=== PATIENT | female | born 1980 | race Hispanic/Latino ===

== ENCOUNTER 2017-09-09 08:21 | Emergency (ER) | payer SELFPAY ==
[~2017-09-09] VITALS: Ht 162.6 cm; Wt 59.0 kg
[~2017-09-09 08:21] MED LIST: ISENTRESS400 M1 PO; OLANZAPINE5 M2 PO; PERCOCET 5-3251 EACH PO; TIVICAY50 M1 PO; TRUVADA 200 MG1 EACH PO; ZOFRAN4 M2 PO; ZYPREXA5 M1 PO
[2017-09-09 08:26] VITALS: BP 121/82
--- NOTE | 2017-09-09 12:04 | ED GI/GU/ABDOMINAL COMPLAINT ---
History of Present Illness General Chief Complaint: Female Urogenital Problems Stated Complaint: VAGINAL DISCHARGE Source: patient, old records Exam Limitations: no limitations Vital Signs & Intake/Output Vital Signs & Intake/Output Vital Signs Date Time Temp Pulse Resp B/P B/P Pulse O2 O2 Flow FiO2 Mean Ox Delivery Rate 09/09 1314 98 Room Air ED Intake and Output 09/10 0000 09/09 1200 Intake Total 0 Output Total Balance 0 Intake, IV 0 Patient 130 lb Weight Weight Reported by Patient Measurement Method Allergies Coded Allergies: No Known Allergies (04/06/16) Reconcile Medications No Known Home Medications Triage Note: 37 YO FEMALE TO TRIAGE C/O VAGINAL ITCHINESS/BURNING. STATES FREQUENT URINATION. STATES WHITE DISCHARGE X2.5 DAYS. Triage Nurses Notes Reviewed? yes ? N Is pt currently ? No Onset: Abrupt Duration: day(s): (2), constant Timing: recent history Quality/Severity: burning Location: vaginal Radiation: no radiation Activities at Onset: none Prior Abdominal Problems: none Sexually Active: Yes Last Time You Were Sexual: less than 2 months ago Sexual Orientation: Heterosexual Use of Protection: No No Modifying Factors: none Associated Symptoms: DENIES HPI: 37-year-old female presents emergency room for evaluation complaining of vaginal itching and burning and yellow discharge for the past 2 days. She is sexually active. No new partners she does not use protection. She denies history of STD in the past. No dysuria urgency frequency hematuria no vaginal bleeding. No doll pain fever chills. She does not have a behavioral health consultant. No modifying factors or associated symptoms otherwise. (Nam Boucher) Past History Travel History Traveled to [place] past 21 day No Medical History Any Pertinent Medical History? 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 No (Nam Boucher) Review of Systems Review of Systems Constitutional: Reports: no symptoms, see HPI. Comments Review of systems: See HPI, All other systems negative. Constitutional, no chills no fever, HEENT: no sore throat no congestion Cardiovascular: No chest pain Skin: no rashes, no change in skin Respiratory: No dyspnea no cough no sputum GI: No nausea no vomiting, no diarrhea, no bloating/constipation : dysuria No hematuria, frequency Muscle skeletal: No joint pain, no back pain Neurologic: , no headache Heme/endocrine: No bruising (Nam Boucher) Physical Exam Physical Exam General Appearance: well developed/nourished, alert, awake Gastrointestinal: soft Comments: Well-developed well-nourished person in no acute distress HEENT: Normal EENT exam; PERRL, EOMI, HEAD is atraumatic. moist mucous membranes. Neck: Supple, normal range of motion without pain or tenderness Back: Nontender, no CVA tenderness. Full range of motion Cardiovascular: Regular rate and rhythms no murmurs Respiratory: No respiratory distress. Patient speaking in full complete sentences. Breath sounds clear to auscultation bilaterally: NO W/R/R Abdomen: Soft, nontender nondistended, no appreciable organomegaly. Normal bowel sounds. No rebound/guarding, pelvic: deferred Extremity: No edema, full range of motion of extremities Neuro: Alert oriented x3, motor sensory normal, There were no obvious focal neurologic abnormalities. Skin: No appreciable rash on exposed skin, skin is warm and dry. Psych: Mood and affect is normal, memory and judgment is normal. Core Measures ACS in differential dx? No Sepsis Present: No Sepsis Focused Exam Completed? No (Nam Boucher) Progress Differential Diagnosis: intrauterine , ovarian cyst, PID/cervicitis, threatened AB, UTI/pyelo Plan of Care: Orders Procedure Date/time Status Add-on Test (ER Only) 09/09 1053 Active Add-on Test (ER Only) 09/09 0923 Active CULTURE,URINE 09/09 0832 Active CHLAMYDIA-GC DNA PROBE 09/09 08 Active URINE 09/09 0826 Complete URINALYSIS 09/09 0826 Complete Laboratory Tests 09/09/17 0832: Urinalysis LIGHT H, Urine Color YEL, Urine Clarity HAZY H, Urine pH 6.0, Ur Specific [place] >= 1.030, Urine Protein 30 H, Urine Ketones NEG, Urine Nitrite NEG, Urine Bilirubin NEG, Urine Urobilinogen 0.2, Ur Leukocyte Esterase MOD H, Ur Microscopic SEDIMENT EXAMINED, Urine RBC 3-5, Urine WBC > 75 H, Ur Epithelial Cells MANY H, Urine Bacteria MANY H, Micro UA Comment TRICHOMONAS SEEN H, Urine Hemoglobin SMALL H, Urine Glucose NEG, Urine Test NEGATIVE Microbiology 09/09 831 URINE ROUT: Urine Culture - RECD 09/09 825 URINE ROUT: GC DNA Probe - RECD 09/09 825 URINE ROUT: Chlamydia DNA Probe (KEVIN) - RECD I discussed with the patient all of her lab results she was treated with Flagyl 2 g by mouth as a thorough 1 g by mouth Rocephin 250 IM I discussed with her need for close follow-up with her [facility] return precautions were discussed at length cleared for discharge Initial ED EKG: none (Yanique BALDERAS,Nam) Departure Departure Time of Disposition: 1212 Disposition: HOME OR SELF CARE Condition: Stable Clinical Impression Primary Impression: Trichimoniasis Referrals: Reyes BALDERAS,Macy Ibrahim (PCP/Family) Nelson RAMIREZ,Amina Jhaveri Additional Instructions: Follow up with [facility] dr corrales. you have been treated for a trichimonis infection. You should inform your partners so they cane be treated for the same. return with any concerns Departure Forms: Customer Survey General Discharge Information Prescriptions: Current Visit Scripts No Known Home Medications (Nam Boucher) PA/WIRE HARNESS DESIGN ENGINEER Co-Sign Statement Statement: ED Attending supervision documentation- [] I saw and evaluated the patient. I have also reviewed all the pertinent lab results and diagnostic results. I agree with the findings and the plan of care as documented in the PA's/WIRE HARNESS DESIGN ENGINEER's documentation. [X] I have reviewed the ED Record and agree with the PA's/WIRE HARNESS DESIGN ENGINEER's documentation. [] Additions or exceptions (if any) to the PAs/WIRE HARNESS DESIGN ENGINEER's note and plan are summarized below: [] (Peyton RAMIREZ,Emily)
== END 2017-09-09 13:23 ==
LOC: ERH 08:21
DX: A59.9 Trichomoniasis, unspecified (principal)
CPT/HCPCS: 81001; 81025; 87086; 87147; 87491; 87591; 96372; J0696

== ENCOUNTER 2017-09-16 14:55 | Inpatient (IN) | payer OTHER ==
[~2017-09-16] VITALS: Ht 154.9 cm; Wt 68.6 kg
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
[2017-09-16 16:08] LABS: ABSOLUTE BASOPHIL COUNT 0.1 /CUMM (0.0-0.2); ABSOLUTE EOSINOPHIL COUNT 0.3 /CUMM (0.0-0.7); ABSOLUTE GRANULOCYTE CT 6.2 /CUMM (1.4-6.5); ABSOLUTE MONOCYTE COUNT 0.5 /CUMM (0.10-0.60); BASOPHIL % 0.6 % (0.0-2.0); GRANULOCYTE % 62.2 % (42.2-75.2); HEMATOCRIT 41.9 % (37-47); MEAN CORPUSCULAR HGB 27.6 PG (27.0-31.0); MEAN CORPUSCULAR HGB CONC 32.9 G/DL (33.0-37.0); MEAN CORPUSCULAR VOLUME 83.9 FL (81.0-99.0); MEAN PLATELET VOLUME 8.1 FL (7.4-10.4); PLATELET COUNT 361 /CUMM (130-400); RBC DISTRIBUTION WIDTH 13.2 % (11.5-14.5); RED BLOOD CELL CT 4.99 /CUMM (4.20-5.40)
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
--- NOTE | 2017-09-16 19:50 | ED PSY CRISIS COLLATERAL NOTE ---
Collateral Note Collateral Note Family/Inform/[place] Contacts: Attemped to reach patient's boyfriend, Elliot Bravo [phone]. Phone did not ring and did not go to voicemail. Long beeping sound. pt did not know number of top her head.
[2017-09-16 20:37] VITALS: BP 123/77
[2017-09-16] MEDS ORDERED: OLANZAPINE5 M2 PO (21:34)
[2017-09-16] MEDS ORDERED: ABILIFY15 M1 PO (22:01)
[2017-09-17 07:54] VITALS: BP 123/79
--- NOTE | 2017-09-17 08:51 | CPS PROVIDER INIT ASMT PSYCH ---
Psychiatric Admission Journeyman Wireman's Note Reviewed: Yes Patient Seen and Examined: Yes Identifying Information: A 37-year old (of Samoan origins) with prior diagnoses of intellectual disability and ?? schizophrenia or ?? Bipolar presenting to the ED with anxiety and depression. Earlier in the day she expressed to Iraida from [facility] that she was thinking of hurting her son. Chief Complaint: "I have depression and anxiety" Reaction to Hospitalization: did not seem to be bothered by it History of Present Illness Onset of Illness: Pre-existing diagnoses of mild intellectual disability and ?? schizophrenia or ? ? Bipolar, reportedly out of meds for about 3 weeks, she has missed several appointments with Ivory Espinoza APRN Circumstances Leading to Admission: command hallucinations to hurt her son Problem(s) Justifying Need for Admission: command hallucinations to hurt son Past Psychiatric History Past Diagnosis(es)- if any: ?? Bipolar ?? Schizophrenia Mild Intellctual Impairment Past Precipitating Factors- if any: Non-adherence to medications - Include inpatient and outpatient treatment Treatment History: The patient was previously at Inpatient Psychiatry June 2016. She has been with [facility] since her discharge History of Suicide Attempts or Gestures no attempts, wanted to cut self in the past (but did not) Substance Abuse History: [id number] Allergies: Coded Allergies: No Known Allergies (04/06/16) Home Med List: Has not been on any x 3 weeks - Include any medical condition(s) that may - impact the patient's recovery/remission Past History Medical History Neurological: migraine EENT: NONE Cardiovascular: NONE Respiratory: NONE Gastrointestinal: NONE Hepatic: NONE Renal: NONE Musculoskeletal: NONE Psychiatric: anxiety, depression Endocrine: diabetes Blood Disorders: NONE Cancer(s): NONE WALL TAPER HELPER/Reproductive: NONE History of MRSA: No History of VRE: No History of CDIFF: No Isolation History: Standard Surgical History Surgical History: hysterectomy Psychiatric Family/Social Hx Family History Psychiatric Illness: She denied, but she is an unreliable historian because Mild Intellectual Disability Substance Use: She denied, but she is an unreliable historian because Mild Intellectual Disability Suicides: She denied, but she is an unreliable historian because Mild Intellectual Disability Social History Living Situation: She lives with her 3 children but I am not clear whether the patient actually lives with her parents are not Significant Relationships (family/friends): The patient's ex- /the father of her children Education: The patient was in special education because of mild intellectual disability, looks like she may have reached 10 grade education Vocation/Occupation: Unemployed Legal: No legal entanglements Healthly Behaviors Screening Tobacco Screening Tobacco Use from ED Docu: Never used - If tobacco counseling indicated - the following topics are required. - #1 Recognizing dangerous situations. - #2 Coping Skills. - #3 Basic information about quitting. Status of Tobacco Cessation Counseling: Not Applicable Cessation Med Status Not Applicable Alcohol Screening - ETOH screen POS if BAL >=80 or Audit-C>= M4/F3 Audit-C Score from Diag Assess: 2 Blood Alcohol Level: Laboratory Tests 09/16 1540 Toxicology Serum Alcohol (<10 MG/DL) < 10.0 Alcohol Use Screening Results: Neg per Audit C &/or BAL - If ETOH counseling indicated - the following topics are required. - #1 Express concern about the patient's - drinking at unhealthy levels, include informing - of national norms for moderate drinking: - men <= 14 drinks/week, max 4 drinks/occasion - women <= 7 drinks/week, max 3 drinks/occasion - #2 Providing feedback, including linking alcohol to - negative physical effects (liver injury, hypertension) - negative emotional effects (relationship problems and - depression) - negative occupational consequences (reduced work - performance) - #3 Advising the patient to abstain from alcohol or - to drink below national norms for moderate drinking - (as listed above). Status of ETOH Use Counseling: N/A B/C NO ETOH Use Metabolic Screening - Screen if on a Neuroleptic Medication - Metabolic screening should include: - Blood Pressure, BMI, Glucose or Hgb A1c, & a - Lipid profile from within the past 365 days. Metabolic Screening Patient on a neuroleptic(s) . Enter below results for Hemoglobin A1C, and lipid panel if obtained during the last 365 days. BMI: 28.500 Blood Pressure: 123/79 Laboratory Results From [facility] (If applicable): Lab Cholesterol 248 MG/DL H 03/11/17 1054 Cholesterol/HDL Ratio 7 % H 03/11/17 1054 HDL Cholesterol 35 mg/dL L 03/11/17 1054 Hemoglobin A1c 7.3 % H 03/11/17 1054 LDL Cholesterol, Calc 179 mg/dL H 03/11/17 1054 Triglycerides 174 mg/dL H 03/11/17 1054 Exam and Plan Mental Status Examination Ambulation Status: Patient had steady gait Appearance: Unremarkable appearance Attitude towards examiner: Calm and cooperative Psychomotor activity: There is reduced psychomotor activity Behavior: No abnormal behaviors Quality of speech: Reduced speech Affect: Constricted affect Mood: Depressed and anxious Suicidal Ideation: Denied suicidal ideation Homicidal Ideation: Denied homicidal ideation today Hallucinations: Denied hallucinations today Paranoid/Delusional Material: Denied feeling paranoid, there were no delusions during the interview. Difficulties with thought organization: There was mild difficulty in thought organization Insight: Limited insight Judgment: Limited judgment Orientation: Oriented to time place and person Cognition: Mild intellectual disability Memory Function: No evidence of short-term memory impairment Estimate of intellectual functioning: Mild intellectual disability Assets/Strengths Patient Identified Assets/Strengths: Patient has supportive ex- and supportive parents or [id number] Impression/Plan Impression and Plan: 37-year-old of Samoan origin's presents to the emergency department yesterday because of command hallucinations telling her to hurt her son The patient has mild intellectual disability and previously received a diagnosis of schizophrenia at one point and the diagnosis of a bipolar disorder at another point the patient has been noncompliant with her medications - Include all active medical diagnosis that require tx DSM 5 Diagnosis(es): Unspecified bipolar disorder Unspecified psychotic disorder/schizophrenia spectrum disorder mild intellectual disability - Initial Tx Plan for Active Psych & Medical Conditions Treatment Plan: Inpatient psychiatric care with safety checks every 15 minutes Resume Lexapro 10 mg daily Reduce Zyprexa to just 10 mg at bedtime I reached out to Anisa Lopez with care and spoke to her about the patient being in the hospital and medications Nursing assessments vital signs on patient education and Aftercare planning by social work and Psychiatrist to evaluate patient's mental state and medications daily - Factors that would help patient function - in a less restrictive setting. Factors: Adherence to medications
[2017-09-17 12:21] VITALS: BP 117/74
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
[2017-09-17 16:11] VITALS: BP 110/78
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
[2017-09-17 20:14] VITALS: BP 128/71
[2017-09-18 07:45] VITALS: BP 113/68
--- NOTE | 2017-09-18 08:27 | CP SOUTH PROGRESS NOTE PSYCH ---
Psych (Inpt) Progress Note Progress Note Vital Signs Date Time Temp Pulse B/P B/P Pulse O2 O2 Flow FiO2 Mean Ox Delivery Rate 09/18 0745 97.5 87 113/68 09/17 2013 97.8 94 128/71 09/17 1611 98 110/78 09/17 1221 99 117/74 Regis progress and treatment plan discussed in the treatment team meeting in AM Mental Status Examination Yuliet was alert & oriented to time, place, and person. Patient had steady gait, unremarkable appearance, calm and cooperative. There is reduced psychomotor activity No abnormal behaviors Reduced speech, Constricted affect She reported that her mood today is "good." She denied feeling anxious Denied suicidal ideation, denied homicidal ideation today Denied hallucinations today, denied feeling paranoid, there were no delusions during the interview. She was not thought disordered, Limited insight, limited judgment, mild intellectual disability, No evidence of short-term memory impairment Impression and Plan: 37-year-old of [place] origin's presents to the emergency department yesterday because of command hallucinations telling her to hurt her son. The patient has mild intellectual disability and previously received a diagnosis of schizophrenia at one point and the diagnosis of a bipolar disorder at another point the patient has been noncompliant with her medications Diagnosis(es): Unspecified bipolar disorder Unspecified psychotic disorder/schizophrenia spectrum disorder mild intellectual disability Treatment Plan: Continue inpatient psychiatric care with safety checks every 15 minutes Continue Lexapro 10 mg daily Continue Zyprexa 10 mg at bedtime Nursing assessments vital signs on patient education and Aftercare planning by social work and Psychiatrist to evaluate patient's mental state and medications daily
--- NOTE | 2017-09-18 10:46 | IP INCIDENTAL NOTE PSYCH ---
Incidental Note Notation: I ordered a follow up hepatic function panel for tomorrow AM
[2017-09-18 11:48] VITALS: BP 101/77
--- NOTE | 2017-09-18 14:25 | SOCIAL WORKER PROG NOTE PSYCH ---
Social Work Progress Note Progress Note 9:30AM Assisted patient in calling [employer] today. She did this but forgot to get the confirmation number. Access stated her insurance should be active. TC 12:15pm - [facility] - Phoned and P stated patient's insurance is active retro to 08/27/17. She is eligible now. She has an ID#[id number]. Ok to obtain PRECERT for inpatient stay. Left Jolynn Preciado LCSW a VM to see if can obtain PRECERT for Inpatient stay (or ED clinicians).
[2017-09-18 16:00] VITALS: BP 112/78
--- NOTE | 2017-09-18 16:39 | SOCIAL WORKER PROG NOTE PSYCH ---
Social Work Progress Note Progress Note 3:50pm This commercial insurance underwriter met with patient. She reported her mood as "a little bit up." Patient felt that her medications were helping (also making her tired) and also feels that she is benefitting from the groups on [place]. Patient expressed interest in returning to [facility] and possibly attending their IOP. Patient stated, "I need to put my part in of what I do." Patient stated that she will talk to [facility] about whether they can provide bus passes as transportation issues has impacted her ability to attend treatment in the past. Patient also stated that she found the medical cabs as unreliable in transporting her to and from appointments. Patient signed STEVE's for her significant other as well as [facility]. She was agreeable to a family meeting. 4:07pm This commercial insurance underwriter left a vm for the patient's signficant other, Elliot Hunter ), with a call back number. 4:30pm This commercial insurance underwriter left a vm for Nuzhat Betancourt at [facility] ([phone]) with a call back number. Also included in the message was patient's interest in IOP as well as bus passes.
[2017-09-18 20:06] VITALS: BP 123/79
[2017-09-19 07:47] VITALS: BP 118/76
[2017-09-19 12:30] VITALS: BP 118/67
--- NOTE | 2017-09-19 13:08 | CP SOUTH PROGRESS NOTE PSYCH ---
Psych (Inpt) Progress Note Progress Note Include the following elements, when applicable: Involvement in the active treatment of the patient with behavioral observations of the patient and the patient's response to the treatment. Review of the ongoing treatment process in the context of the treatment plan. Indication of how multi-disciplinary staff members are carrying out the treatment plan. Plans for future interventions and recommendations for revision of the treatment plan. Liaison with other physicians/providers. Progress Note: Chart reviewed, progress discussed with nursing staff. Interviewed patient this morning. Pleasant, cooperative, denies any current complaints. Denies SI or HI , denies any medication side effects, denies AVH. Vital signs were within normal limits. Hepatic function panel returned today and demonstrates improvement in liver enzymes from admission, though these are still mildly elevated. Mental status exam: Adequately groomed female of apparent stated age, sitting in hospital bed, limited eye contact, no psychomotor agitation or retardation, speech is within normal limits, mood is "okay ", affect is constricted, non-labile, thought processes logical and linear, thought content without SI or HI, denies perceptual disturbances, cognition is grossly intact, insight and judgment are fair. A/P: Continues to slowly improve. Liver enzymes have improved since admission. Will continue present management as per primary team.
[2017-09-19 16:02] VITALS: BP 120/75
[2017-09-19 19:32] VITALS: BP 126/73
[2017-09-20 07:50] VITALS: BP 106/70
[2017-09-20 12:07] VITALS: BP 117/68
--- NOTE | 2017-09-20 13:14 | CP SOUTH PROGRESS NOTE PSYCH ---
Psych (Inpt) Progress Note Progress Note Include the following elements, when applicable: Involvement in the active treatment of the patient with behavioral observations of the patient and the patient's response to the treatment. Review of the ongoing treatment process in the context of the treatment plan. Indication of how multi-disciplinary staff members are carrying out the treatment plan. Plans for future interventions and recommendations for revision of the treatment plan. Liaison with other physicians/providers. Progress Note: Chart reviewed, progress discussed with nursing staff. Interviewed patient this morning. Again, pleasant, cooperative. Reports current headache. Denies SI or HI, denies any medication side effects, denies AVH. Vital signs were within normal limits. No new laboratory results today. Mental status exam: Adequately groomed female of apparent stated age, sitting in hospital bed, limited eye contact, no psychomotor agitation or retardation, speech is within normal limits, mood is "good ", affect is constricted, non-labile, thought processes logical and linear, thought content without SI or HI, denies perceptual disturbances, cognition is grossly intact, insight and judgment are fair. A/P: Continues to slowly improve. Will continue present management as per primary team.
[2017-09-20 16:07] VITALS: BP 115/70
[2017-09-20 19:50] VITALS: BP 122/67
[2017-09-21 07:42] VITALS: BP 105/66
--- NOTE | 2017-09-21 08:13 | CP SOUTH PROGRESS NOTE PSYCH ---
Psych (Inpt) Progress Note Progress Note Vital Signs Date Time Temp Pulse Resp B/P B/P Pulse O2 O2 Flow FiO2 Mean Ox Delivery Rate 09/21 0742 97.8 89 105/66 09/20 1950 97.5 84 122/67 09/20 1607 92 115/70 09/20 1207 96 117/[address] Busch progress notes from the weekend. The patients progress and treatment/aftercare plans were reviewed in the treatment team meeting this morning. Treatment team included: Nursing, social work, group therapy and activity therapy staff, and psychiatrist There are no new laboratory results today. A 37-year old (of Moroccan origins) with prior diagnoses of intellectual disability and ?? schizophrenia or ?? Bipolar presenting to the ED with anxiety and depression. Earlier in the day she expressed to Iraida from [facility] that she was thinking of hurting her son. Chief Complaint: "I have depression and anxiety"Pre-existing diagnoses of mild intellectual disability and ?? schizophrenia or ?? Bipolar, reportedly out of meds for about 3 weeks, she has missed several appointments with Ivory Espinoza APRN Mental status exam: no psychomotor agitation or retardation, speech is within normal limits, mood is "good ", affect is constricted, non-labile, thought processes logical and linear, denied SI or HI, denies perceptual disturbances, cognition is grossly intact, insight and judgment are fair. A/P: Continues to slowly improve. Likely D/C tomorrow The patient was previously at Inpatient Psychiatry June 2016. She has been with care since her discharge History of Suicide Attempts or Gestures no attempts, wanted to cut self in the past (but did not) Substance Abuse History: [id number] ANJEL Allergies: Coded Allergies: No Known Allergies (04/06/16) She lives with her 3 children but I am not clear whether the patient actually lives with her parents are not Significant Relationships (family/friends): The patient's ex- /the father of her children Education: The patient was in special education because of mild intellectual disability, looks like she may have reached 10 grade education Vocation/Occupation: Unemployed Legal: No legal entanglements - Factors that would help patient function - in a less restrictive setting. Factors:
[2017-09-21 12:09] VITALS: BP 116/63
[2017-09-21 16:04] VITALS: BP 121/68
--- NOTE | 2017-09-21 17:56 | SOCIAL WORKER PROG NOTE PSYCH ---
Social Work Progress Note Progress Note 2:55pm This senior copywriter met with patient. She was informed that this senior copywriter received a call from Nuzhat at [facility] in response to the vm left on Thursday. Nuzhat stated that the patient had been provided with bus passes previously and still unable to attend appointments. Patient stated that she did not have enough bus passes and plans to obtain a monthly pass in order to make it to all appointments. Patient stated that she is "feeling better" today and believes that the medications are effective. Patient maintains interest in returning to [facility] following discharge for ongoing outpatient/IOP treatment. Patient denied SI/HI/ AH/VH. Patient stated that she would speak with her rika about scheduling a family meeting prior to discharge. This senior copywriter and patient discussed strategies that she could utilize to manage emotions as they arise: "walk away" from a stressful situation. Patient stated that she would identify additional coping skills as well.
[2017-09-21 19:48] VITALS: BP 128/75
[2017-09-22 07:46] VITALS: BP 111/73
--- NOTE | 2017-09-22 09:03 | CP SOUTH PROGRESS NOTE PSYCH ---
Psych (Inpt) Progress Note Progress Note Vital Signs Date Time Temp Pulse Resp B/P B/P Pulse O2 O2 Flow FiO2 Mean Ox Delivery Rate 09/22 0746 96.7 91 111/73 09/21 1948 98.1 90 128/75 09/21 1604 82 121/68 09/21 1209 84 116/63 The patients progress and treatment/aftercare plans were reviewed in the treatment team meeting this morning. Treatment team included: Nursing, social work, group therapy and activity therapy staff, and psychiatrist There are no new laboratory results today. Mental status exam: The patient was in good spirits today There was no psychomotor agitation or retardation, speech is within normal limits, mood is "good ", affect is constricted, non-labile, thought processes logical and linear, denied SI or HI, denies perceptual disturbances, cognition is grossly intact, insight and judgment are fair. A/P: Continues to slowly improve. Plan: D/C home with f/u with [facility]
[2017-09-22] MEDS ORDERED: LEXAPRO10 M1 PO (10:51)
[2017-09-22] MEDS ORDERED: OLANZAPINE10 M1 PO (10:51)
--- NOTE | 2017-09-22 10:52 | Patient Discharge Instructions ---
Psych Discharge Inst General Discharge Information Reason for Admission: expressed to Iraida from [facility] that she was thinking of hurting her son. Psy Discharge Primary Diag+ Unspecified Bipolar Disor Summary Tests/Major Procedures Lab Cholesterol 248 MG/DL H 03/11/17 1054 Cholesterol/HDL Ratio 7 % H 03/11/17 1054 HDL Cholesterol 35 mg/dL L 03/11/17 1054 Hemoglobin A1c 7.3 % H 03/11/17 1054 LDL Cholesterol, Calc 179 mg/dL H 03/11/17 1054 Triglycerides 174 mg/dL H 03/11/17 1054 Studies Pending at DC: None Patient Instructions Contact Information Your Psychiatrist on [facility] was Marttia RAMIREZ,Michael * If you are experiencing an emergency related to this hospitalization, please call [phone] to contact the treating psychiatrist or the psychiatrist-on- call. * To Request a copy of your medical records, please contact the Medical Records Department at [phone]. * To request results of studies pending at the time of discharge, please call [phone]. * Continue your Medications until directed to stop by your Healthcare provider. General Medication Information Please continue to take your new medications and your continued home medications , unless otherwise indicated on your discharge medication list, or unless directed by your MD or WAFER MACHINE OPERATOR to stop them. Special Instructions Diet Regular Activity Normal - Tobacco Use Treatment Offered Post DC Medications Offered: Not Applicable Post DC Tobacco Treatment Plan: Not Applicable - EtOH/Drug Use D/O Treatment Offered Post DC Medications Offered: NA-No EtOH/Drug Use D/O Post DC EtOH/SubAbuse TX Plan: NA-No EtOH/Drug Use D/O Metabolic Screening Patient on a neuroleptic(s) . Enter below results for Hemoglobin A1C, and lipid panel if obtained during the last 365 days. BMI: 28.500 Blood Pressure: 111/73 Laboratory Results From [facility] (If applicable): Lab Cholesterol 248 MG/DL H 03/11/17 1054 Cholesterol/HDL Ratio 7 % H 03/11/17 1054 HDL Cholesterol 35 mg/dL L 03/11/17 1054 Hemoglobin A1c 7.3 % H 03/11/17 1054 LDL Cholesterol, Calc 179 mg/dL H 03/11/17 1054 Triglycerides 174 mg/dL H 03/11/17 1054 Advance Directives Does the Patient have Medical Advance Directives No/Per pt req info given Does Pt have Psychiatric Advance Directives? No/Refused further info Does Patient have a Designated Surrogate Decision Maker: No Information About Psychiatric Advance Directives Provided? Refused Discharge Plan Post Hospital Treatment Plan: [facility]
--- NOTE | 2017-09-22 11:34 | SOCIAL WORKER PROG NOTE PSYCH ---
Social Work Progress Note Progress Note 10:17am This magnetic tape typewriter operator met with patient. She reported feeling well, though still tired from medications. Patient stated that she had previously been engaged in services through [facility] visiting nurse and would like to re-engage in services. Patient did not identifying any concerns about discharge today. She denied SI/HI/AH/VH. Patient identified a safety plan in which she would "call 211". She was also informed that she would be provided with crisis numbers and warm line numbers upon discharge. Patient was agreeable to utilizing these resources. 10:30am Dr. Anders and this magnetic tape typewriter operator met with the patient and her , Elliot. 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 They stated that the patient would be available for appointments between 8am and 1pm Thursday-Thursday. Elliot did not have any concerns about the patient discharge today and attending treatment at [facility]. This magnetic tape typewriter operator contacted Nuzhat at [facility] and left a vm regarding the morning appointment request. Patient had previously been scheduled to see Elodia Walker LCSW on 09/24/17 at 3pm and 10/01/17 at 5pm as well as Brittany Espinoza APRN on 09/29/17 at 1:30pm. Ultimately, outpatient appointments were scheduled and accepted by the patient as follows: - 09/25/17 at 9am with Elodia Walker - (10/01/17 at 5pm was cancelled) - week of 09/28/17, Elodia does not have availability and patient may contact [facility] to schedule an appointment with her if needed - 10/09/17 at 11am with Elodia Walker - 10/16/17 at 11am with Elodia Walker - 09/29/17 at 1:30pm with Brittany Espinoza APRN for medication management This magnetic tape typewriter operator spoke with [facility] who was not willing to continue with services to due patient's noncompliance with appointments and medications. This magnetic tape typewriter operator spoke with Cyndi at [facility] ([phone]) who accepted the referral, however, stated that the patient would need to attend her medication appointment at [facility] before services could begin. W10 and Patient Health Summary was requested by Cyndi at [facility] upon discharge. - Nuzhat at [facility] was informed of this as well as requested to call [facility] following the 09/29/17 medication appointment This magnetic tape typewriter operator left vm for Mauricio Grey with [facility] ([phone]) at 10: 09am regarding discharge today. This magnetic tape typewriter operator attempted to follow up and was informed by the medical office receptionist that Mauricio is out of the office this morning. transferred this magnetic tape typewriter operator to the supervisor securities vault, Wilman Og, and this magnetic tape typewriter operator left a vm at 11:17am informing of discharge. A call back number was provided. Faxed Referral(s) 1 Referred To: [facility] Transition of Care Documents sent: Health Summary Faxed to: [facility], attn: Nuzhat Fax #: [phone] Faxed by: Mono Preciado LCSW Date faxed: 09/22/17 Time Faxed: [phone] Faxed Referral(s) 2 Referred To: [facility] Transition of Care Documents sent: Health Summary, W10 Faxed to: [facility] Fax #: [phone] Faxed by: Mono Preciado LCSW Date faxed: 09/22/17 Time Faxed: [phone]
--- NOTE | 2017-09-22 14:54 | SOCIAL WORKER PROG NOTE PSYCH ---
Social Work Progress Note Progress Note BRIELLE FAM [id number] 1980 BRIELLE FAM [id number] Pended Authorization # Client Authorization # Type of Request [id number] CONCURRENT Date of Admission/ Start of Services Requested From Submission Date 09/16/2017 09/19/2017 09/22/2017
== END 2017-09-22 12:33 | DRG 753 ==
LOC: ERH 14:55 → CP SOUTH 19:25 → ERHI 19:25 → CP SOUTH 20:24 → ENRESERV 23:59 → CP SOUTH 09-18 14:29
PROVIDERS: Physician Assistant
DX: F31.9 Bipolar disorder, unspecified (principal)
CPT/HCPCS: 36415; 80307; G0480; Q2036